=== PATIENT | female | born 1960 | race Caucasian/White ===

== ENCOUNTER → 2023-05-12 09:33 | Outpatient (BNVA) | payer BC, SELFPAY | PROVIDERS: PCP Nurse Practitioner Family; Visit Provider Nurse Practitioner Family | DX: D68.51 Activated protein C resistance (principal); Z12.31 Encounter for screening mammogram for malignant neoplasm of breast; Z76.89 Persons encountering health services in other specified circumstances; E11.9 Type 2 diabetes mellitus without complications; F32.A Depression, unspecified; R31.9 Hematuria, unspecified | CPT/HCPCS: 85610 ==

== ENCOUNTER → 2023-05-20 15:28 | Outpatient (BNVA) | payer BC, SELFPAY | PROVIDERS: PCP Nurse Practitioner Family; Visit Provider Nurse Practitioner Family | DX: I48.91 Unspecified atrial fibrillation (principal) | CPT/HCPCS: 85610 ==

== ENCOUNTER → 2023-06-20 09:06 | Outpatient (BNVA) | payer BC, SELFPAY | PROVIDERS: PCP Nurse Practitioner Family; Visit Provider Nurse Practitioner Family | DX: D68.51 Activated protein C resistance (principal) | CPT/HCPCS: 85610 ==

== ENCOUNTER → 2023-06-28 14:55 | Outpatient (BNVA) | payer BC, SELFPAY | PROVIDERS: PCP Nurse Practitioner Family; Visit Provider Nurse Practitioner Family | DX: D68.51 Activated protein C resistance (principal) | CPT/HCPCS: 85610 ==

== ENCOUNTER → 2023-07-19 10:17 | Outpatient (BNVA) | payer BC, SELFPAY | PROVIDERS: PCP Nurse Practitioner Family; Visit Provider Nurse Practitioner Family | DX: D68.51 Activated protein C resistance (principal) | CPT/HCPCS: 85610 ==

== ENCOUNTER → 2023-08-19 10:04 | Outpatient (BNVA) | payer BC, SELFPAY | PROVIDERS: PCP Nurse Practitioner Family; Visit Provider Nurse Practitioner Family | DX: I48.91 Unspecified atrial fibrillation (principal); D68.51 Activated protein C resistance | CPT/HCPCS: 85610 ==

== ENCOUNTER → 2023-09-01 09:59 | Outpatient (BNVA) | payer BC, SELFPAY | PROVIDERS: PCP Nurse Practitioner Family; Visit Provider Nurse Practitioner Family | DX: Z79.01 Long term (current) use of anticoagulants (principal) | CPT/HCPCS: 85610 ==

== ENCOUNTER → 2023-09-16 10:15 | Outpatient (BNVA) | payer BC, SELFPAY | PROVIDERS: PCP Nurse Practitioner Family; Visit Provider Internal Medicine Rheumatology | DX: E11.9 Type 2 diabetes mellitus without complications (principal); Z79.01 Long term (current) use of anticoagulants | CPT/HCPCS: 85610 ==